=== PATIENT | female | born 1965 | race Caucasian/White ===

== ENCOUNTER → 2020-07-08 13:09 | Outpatient (CLI) | payer OTHER, SELFPAY ==
--- NOTE | 2020-07-08 13:16 | VDLE_ITS ---
Reason For Study: Pain rt leg RIGHT GSV is normal. CFV is compressible, spontaneous, phasic, competent and demonstrates normal augmentation. FV is compressible, spontaneous, phasic, competent and demonstrates normal augmentation. POP V is compressible, spontaneous, phasic, competent and demonstrates normal augmentation. T/P Trunk is compressible. PTV is compressible. RT PerV is compressible. Nonvascularized structure noted in the right popliteal fossa measuring approximently 1.25 x 2.52 x 3.09 cm. Procedure Exam performed in department. A preliminary report was called and/or faxed to . Interpretation Summary Deep veins of the right lower extremity are patent and compressible segmentally. There is no evidence of right lower extremity deep vein thrombosis. Valvular competence appears intact within the proximal deep venous system on the right . The right great saphenous vein appears patent and compressible segmentally. A non-vascular structure is noted in the right popliteal space, measuring 1.25 cm x 2.52 cm x 3.09 cm. This probably represents a popliteal cyst. Clinical correlation is advised. Ordering Physician: Osbaldo Thrasher Performed By: Gregoria Santana RVT and Student
== END ==
PROVIDERS: Visit Provider Registered Nurse
DX: M79.604 Pain in right leg (principal)
CPT/HCPCS: 93971